=== PATIENT | male | born 1965 | race Caucasian/White ===

== ENCOUNTER 2017-03-24 10:08 | Emergency (ER) | payer SELFPAY ==
[~2017-03-24 10:08] MED LIST: ANTI12.5 PO; Z.0.NO CURRENT MEDS
[2017-03-24 10:10] VITALS: BP 164/104; PULSE 114; RESP 18; TEMP 98.9; O2SAT 98
--- NOTE | 2017-03-24 10:21 | PD ---
HPI Chief Complaint: Chest Pain Time Seen by Provider: 10:11 Travel History International Travel<30 days: No Contact w/Intl Traveler<30days: No Traveled to known affect area: No History of Present Illness HPI This 52-year-old male is complaining of palpitations. He said he has had palpitations off and on his whole life. He had an episode this morning that lasted about 4 minutes. He said he felt his heart thumping and was felt he had a very sharp pain. He is not having pain now. After the palpitations resolved he had some tingling which is also resolved. He is not on any medications. He does not smoke. He occasionally is no family history of heart disease. He does not have high blood pressure diabetes. He does not get exertional chest pain. [facility] Social History Alcohol Use: Yes (OCCASIONAL) Tobacco Use: No Allergies-Medications (Allergen,Severity, Reaction): Coded Allergies: No Known Allergies (Verified Adverse Reaction, Unknown, 03/24/17) Reported Meds & Prescriptions Reported Meds & Active Scripts Active No Active Prescriptions or Reported Medications Review of Systems Except as stated in HPI: all other systems reviewed are Neg General / Constitutional: No: Fever, Chills Eyes: No: Diploplia, Blurred Vision HENT: No: Headaches Cardiovascular: Positive: Chest Pain or Discomfort Respiratory: No: Shortness of Breath Gastrointestinal: No: Nausea, Vomiting Genitourinary: No: Urgency, Frequency Musculoskeletal: No: Myalgias, Arthralgias Skin: No Rash, No Itching Neurologic: No: Weakness, Dizziness Endocrine: No: Heat Intolerance, Cold Intolerance Hematologic/Lymphatic: No: Easy Bruising Physical Exam Narrative GENERAL: Well-developed male SKIN: Focused skin assessment warm/dry. HEAD: Atraumatic. Normocephalic. EYES: Pupils equal and round. No scleral icterus. No injection or drainage. ENT: No nasal bleeding or discharge. Mucous membranes pink and moist. NECK: Trachea midline. No JVD. CARDIOVASCULAR: Regular rate and rhythm. No murmur appreciated. RESPIRATORY: No accessory muscle use. Clear to auscultation. Breath sounds equal bilaterally. GASTROINTESTINAL: Abdomen soft, non-tender, nondistended. Hepatic and splenic margins not palpable. MUSCULOSKELETAL: No obvious deformities. No clubbing. No cyanosis. No edema. NEUROLOGICAL: Awake and alert. No obvious cranial nerve deficits. Motor grossly within normal limits. Normal speech. PSYCHIATRIC: Appropriate mood and affect; insight and judgment normal. Data Data Last Documented VS Vital Signs Date Time Temp Pulse Resp B/P (MAP) Pulse Ox O2 Delivery O2 Flow Rate FiO2 03/24/17 10:10 98.9 114 18 164/104 (124) 98 Orders Orders Electrocardiogram (03/24/17 10:18) Complete Blood Count With Diff (03/24/17 10:18) Basic Metabolic Panel (Bmp) (03/24/17 10:18) Troponin I (03/24/17 10:18) Magnesium (Mg) (03/24/17 10:18) Thyroid Stimulating Hormone (03/24/17 10:18) Labs Laboratory Tests Test 03/24/17 10:30 White Blood Count 8.2 TH/MM3 Red Blood Count 5.40 MIL/MM3 Hemoglobin 15.4 GM/DL Hematocrit 47.7 % Mean Corpuscular Volume 88.3 FL Mean Corpuscular Hemoglobin 28.5 PG Mean Corpuscular Hemoglobin Concent 32.3 % Red Cell Distribution Width 12.8 % Platelet Count 242 TH/MM3 Mean Platelet Volume 8.4 FL Neutrophils (%) (Auto) 74.4 % Lymphocytes (%) (Auto) 17.9 % Monocytes (%) (Auto) 5.5 % Eosinophils (%) (Auto) 1.3 % Basophils (%) (Auto) 0.9 % Neutrophils # (Auto) 6.0 TH/MM3 Lymphocytes # (Auto) 1.5 TH/MM3 Monocytes # (Auto) 0.5 TH/MM3 Eosinophils # (Auto) 0.1 TH/MM3 Basophils # (Auto) 0.1 TH/MM3 CBC Comment DIFF FINAL Differential Comment Blood Urea Nitrogen 12 MG/DL Creatinine 1.10 MG/DL Random Glucose 118 MG/DL Calcium Level 8.9 MG/DL Magnesium Level 2.2 MG/DL Sodium Level 138 MEQ/L Potassium Level 4.0 MEQ/L Chloride Level 102 MEQ/L Carbon Dioxide Level 30.4 MEQ/L Anion Gap 6 MEQ/L Estimat Glomerular Filtration Rate 71 ML/MIN Troponin I LESS THAN 0.02 NG/ML Thyroid Stimulating Hormone 3rd Gen 2.270 uIU/ML MDM Medical Decision Making Medical Screen Exam Complete: Yes Emergency Medical Condition: Yes Medical Record Reviewed: Yes Differential Diagnosis Differential includes palpitations, dysrhythmia, atypical chest pain Narrative Course EKG shows sinus rhythm. Troponin is normal. Patient has been stable. His pain is not suggestive of coronary artery disease. He is stable for outpatient evaluation and he'll be referred to the [place] [facility] Diagnosis Primary Impression: Atypical chest pain Scripts No Active Prescriptions or Reported Meds Disposition: 01 DISCHARGE HOME Condition: Stable Hira Mcgregor MD Mar 24, 2017 10:21
[2017-03-24 10:37] LABS: BASOPHIL # 0.1 TH/MM3 (0-0.2); BASOPHIL % 0.9 % (0.0-2.0); EOSINOPHIL # 0.1 TH/MM3 (0-0.4); EOSINOPHIL % 1.3 % (0.0-4.0); HEMATOCRIT 47.7 % (39.0-51.0); HEMOGLOBIN 15.4 GM/DL (13.0-17.0); LYMPH % 17.9 % (9.0-44.0); LYMPHOCYTE # 1.5 TH/MM3 (1.0-4.8); MEAN CELL VOLUME 88.3 FL (80.0-100.0); MEAN CORPUSCULAR HEMOGLOBIN 28.5 PG (27.0-34.0); MEAN CORPUSCULAR HGB CONC 32.3 % (32.0-36.0); MEAN PLATELET VOLUME 8.4 FL (7.0-11.0); MONO % 5.5 % (0.0-8.0); MONOCYTE # 0.5 TH/MM3 (0-0.9); NEUT % 74.4 % (16.0-70.0); PLATELET COUNT 242 TH/MM3 (150-450); RED CELL DISTRIBUTION WIDTH 12.8 % (11.6-17.2); WHITE BLOOD COUNT 8.2 TH/MM3 (4.0-11.0)
[2017-03-24 10:46] LABS: CHLORIDE 102 MEQ/L (98-107); SODIUM (NA) 138 MEQ/L (136-145)
[2017-03-24 10:48] LABS: CALCIUM 8.9 MG/DL (8.5-10.1)
[2017-03-24 10:49] LABS: BICARBONATE 30.4 MEQ/L (21.0-32.0); BLOOD UREA NITROGEN 12 MG/DL (7-18); GLUCOSE,RANDOM 118 MG/DL (74-106); MAGNESIUM 2.2 MG/DL (1.5-2.5)
[2017-03-24 10:52] LABS: GLOMERULAR FILTRATION RATE 71 ML/MIN (>89)
[2017-03-24 10:57] LABS: TROPONIN I LESS THAN 0.02 NG/ML (0.02-0.05)
[2017-03-24 13:14] VITALS: BP 107/84
--- NOTE | 2017-03-24 20:52 | EKG ---
Date Performed: 03/24/2017 Time Performed: 10:14:56 PTAGE: 52 years EKG: SINUS TACHYCARDIA INFERIOR Q WAVES ABNORMAL ECG PREVIOUS TRACING : 01/20/1993 20.21 Compared to the previous tracing inferior Q waves present DOCTOR: Carolyn Lubin Interpretating Date/Time 03/24/2017 20:51:20
== END 2017-03-24 13:17 | disposition home or self-care (01) ==
LOC: PHED 10:08
DX: R07.89 Other chest pain (principal); R00.0 Tachycardia, unspecified
CPT/HCPCS: 80048; 83735; 84443; 84484; 85025; 93005